=== PATIENT | male | born 1995 | race Caucasian/White ===

== ENCOUNTER 2016-10-31 23:49 | Emergency (ER) | payer OTHER ==
--- NOTE | ~2016-10-31 | CR58 ---
[facility] A Service of [facility] RADIOLOGY TEXT RESULTS PATIENT: LIN WINTER LOCATION: SED : [birth year] UNIT #: [id number] AGE: [address]: Lydia Haas APRN SEX: M ORDER DR: [id number] [place] [address] [id number] E MR#: [id number] Acc #: [id number] NAME: LIN WINTER : 1995 SEX: M STUDY DATE/TIME: 10/31/2016 23:06 UNIT: SED ROOM: STUDY DESCRIPTION: CR Cervical Spine 2 or 3 Views Attending Physician: Lydia Haas A.P.R.N. Ordering Physician: Lydia Haas A.P.R.N. Primary Care Physician: Casie Kang M.D. MEDICAL IMAGING REPORT This report is preliminary unless electronic signature is present. EXAM Cervical spine series INDICATION Head and neck pain after an injury today. PROCEDURE 5 views cervical spine. COMPARISON None. FINDINGS Cervical bodies have normal height, alignment is preserved. The craniocervical junction, prevertebral soft tissues and the dens are intact. IMPRESSION No acute findings. Dictated by... Hamlet Irby M.D. THIS IS AN ELECTRONICALLY VERIFIED REPORT Hamlet Irby M.D. at 11/04/2016 7:30 AM EED/calu TD: 11/01/2016 03:52 JOB #: [id number] MEDICAL IMAGING REPORT [facility] A Service of [facility] RADIOLOGY TEXT RESULTS PATIENT: LIN WINTER LOCATION: SED : [birth year] UNIT #: [id number] AGE: [address]: Lydia Haas APRN SEX: M ORDER DR: Page 1 of 1
--- NOTE | ~2016-10-31 | CT71 ---
[facility] A Service of [facility] RADIOLOGY TEXT RESULTS PATIENT: LIN WINTER LOCATION: SED : [birth year] UNIT #: [id number] AGE: [address]: Lydia Haas APRN SEX: M ORDER DR: [id number] [place] [id number] E MR#: [id number] Acc #: [id number] NAME: LIN WINTER : 1995 SEX: M STUDY DATE/TIME: 10/31/2016 23:14 UNIT: SED ROOM: STUDY DESCRIPTION: CT Head Wo Contrast Attending Physician: Lydia Haas A.P.R.N. Ordering Physician: Lydia Haas A.P.R.N. Primary Care Physician: Casie Kang M.D. MEDICAL IMAGING REPORT This report is preliminary unless electronic signature is present. EXAM CT head without contrast INDICATION Head pain after an injury to tonight. PROCEDURE Unenhanced CT head. This CT exam was performed with one or more of the following radiation dose reduction techniques: automatic exposure control, adjustment of mA and/or kV according to patient size, and iterative reconstruction. COMPARISON 09/29/2012 FINDINGS No acute hemorrhage, abnormal mass effect, extraaxial collection or hydrocephalus. No calvarial fracture. Paranasal sinuses and mastoid air cells are clear. IMPRESSION No acute intracranial findings. Dictated by... Hamlet Irby M.D. THIS IS AN ELECTRONICALLY VERIFIED REPORT Hamlet Irby M.D. at 11/04/2016 7:30 AM [facility] A Service of [facility] RADIOLOGY TEXT RESULTS PATIENT: LIN WINTER LOCATION: SED : [birth year] UNIT #: [id number] AGE: [address]: Lydia Haas APRN SEX: M ORDER DR: Ang TD: 11/01/2016 03:58 JOB #: [id number] MEDICAL IMAGING REPORT Page 1 of 1
[~2016-10-31 23:49] MED LIST: DICLOFENAC PO; IBUPROFEN PO; PHENERGAN25 M1 PO
== END 2016-11-01 00:13 | disposition home or self-care (01) ==
LOC: SED 23:49
DX: S09.90XA Unspecified injury of head, initial encounter (principal); W22.8XXA Striking against or struck by other objects, initial encounter; Y99.0 Civilian activity done for income or pay
CPT/HCPCS: 70450; 72040; 99284